=== PATIENT | female | born 1995 | race Caucasian/White ===

== ENCOUNTER 2025-05-29 02:28 | Emergency (ER) | payer MEDICAID ==
[~2025-05-29] VITALS: Ht 165.1 cm; Wt 50.8 kg
[2025-05-29 02:31] VITALS: BP 115/71
[2025-05-29] MEDS ORDERED: ACETAMINOPHEN 500 MG TABLET ONE (02:56)
[2025-05-29] MEDS ORDERED: ONDANSETRON ODT 4 MG TAB.RAPDIS ONE (02:56)
[2025-05-29] MEDS ORDERED: ONDA-243 PO (02:58)
[2025-05-29] MEDS: ACETAMINOPHEN 500 MG TABLET PO ONE (02:59)
[2025-05-29] MEDS: ONDANSETRON ODT 4 MG TAB.RAPDIS SL ONE (02:59)
[2025-05-29 03:04] VITALS: BP 115/71; O2SAT 97
== END 2025-05-29 03:04 | disposition home or self-care (01) ==
LOC: ER 02:46
DX: S00.83XA Contusion of other part of head, initial encounter (principal); F17.290 Nicotine dependence, other tobacco product, uncomplicated; V89.0XXA Person injured in unspecified motor-vehicle accident, nontraffic, initial encounter; Y93.89 Activity, other specified; Y92.410 Unspecified street and highway as the place of occurrence of the external cause; Y99.9 Unspecified external cause status
CPT/HCPCS: A4606; A4663; A9150; Q0162